=== PATIENT | male | born 1950 | race Caucasian/White ===

== ENCOUNTER 2019-01-21 06:09 | Inpatient (IN) | payer MEDICARE, OTHER, SELFPAY ==
[2019-01-19 08:30] VITALS: BMI 28.1
[2019-01-21] VITALS (17 sets, daily range): BP systolic 99–175; BP diastolic 39–91; PULSE 66–91; RESP 11–20; TEMP 36.1–37.3; O2SAT 91–98; BMI 28.1
--- NOTE | 2019-01-21 | DI.RAD.S_ITS ---
PROCEDURE: XR LUMBAR SPINE 2-3V INDICATIONS: L5-S1 TLIF TECHNIQUE: 2 views of the lumbar spine were acquired. COMPARISON: [facility], , XR LUMBAR SPINE WITH OBLIQUES, 05/13/2017, 13:09. [facility], CR, XR LUMBAR SPINE WITH OLBIQUES PLUS FLEXION EXTENSION, 12/02/2018, 14:35. [facility], MR, MR LUMBAR SPINE WITHOUT CONTRAST, 12/11/2018, 13:19. FINDINGS: 2 intraoperative fluoroscopy images demonstrate open discectomy and posterior fusion at L5-S1. IMPRESSION: Discectomy and posterior fusion at L5-S1. Dictated by: Kiesha Chavez M.D. on 01/21/2019 at 11:45 Approved by: Kiesha Chavez M.D. on 01/21/2019 at 11:56
[2019-01-21] MEDS: LACTATED RINGERS 1,000 ML 42 ML IV ×2 (07:05→09:54)
--- NOTE | 2019-01-21 07:07 | PM.PREOP ---
Pre-operative Note Interval Note History & Physical reviewed/Exam performed by Physician: Yes Changes to H&P: No
[2019-01-21] MEDS: CLINDAMYCIN 900 MG/50 ML PIGGYBACK 50 MG IV ×2 (07:42→16:29)
--- NOTE | 2019-01-21 08:28 | SUR.OPER ---
Prone on spine table, head in foam head support, padded chest and pelvic supports, gel pad at knees, lower legs supported by pillows; nipples, genitalia and toes free of pressure, arms secured on foam padded arm boards at <90 degrees abduction. Tape over blanket at thigh secured to table.
[2019-01-21] MEDS: SODIUM CHLORIDE 0.9% 1,000 ML, GENTAMICIN 80 MG IRR ×2 (08:37→10:26)
[2019-01-21] MEDS: THROMBIN (RECOMBINANT) 5,000 UNIT VIAL 5000 UNIT TOP (08:38)
[2019-01-21] MEDS: VANCOMYCIN 1,000 MG VIAL 1000 MG TOP (08:38)
[2019-01-21] MEDS: BUPIVACAINE 0.5% (PF) 4 ML, MORPHINE-PF 4 MG, BUTORPHANOL 1 MG, fentaNYL 100 MCG INJ (10:23)
--- NOTE | 2019-01-21 11:08 | P.OP_ITS ---
Operative Date/Time/Diagnoses Date of procedure: 01/21/19 Time of procedure: 11:02 Pre-op diagnosis: lumbar stenosis with radiculopathy Post-op diagnosis: same Procedure & Clinicians Procedure: L5S1 TLIF (post/post interbody fusion) with cage L5,S1 screws icbg L45 laminectomy L5S1 laminectomy use of microscope placement of epidural catheter Same procedure as scheduled: Yes Indications: [age] year old male with intractable pain from lumbar stenosis. They had failed conservative management and requested operative intervention. Risks and benefits of surgery were discussed and appropriate consents were obtained. Surgeon: Adam Witt License Examiner: Emily Miller Operative Notes Findings: None Closure Type: primary Specimen(s): none sent Prosthetic devices, grafts, tissues, transplants, or devices: NuVasive MAS Reline screws Globus Rise cage Applied: catheter Estimated Blood Loss (mL): 20 Procedure in detail: The patient was brought to the operating room and intubated on the table. A time-out was performed. They were then rolled over to the well- padded Vinicius table in the prone position. Preoperative antibiotics were given. The back was prepped and draped in the standard sterile fashion. Using fluoroscopy, a 4 cm longitudinal incision was made to the well-marked left of the midline. We used Bovie to come down to and split the lumbodorsal fascia. Using fluoroscopy and monitoring, we then percutaneously placed Jamshidi needles down the pedicles of L5 and S1 on the left side. These were changed out to guidewires and then we tapped and then placed the NuVasive MAS Reline screw shanks. We then opened up the retractors and used Bovie to clear up the posterolateral gutter as well as medially along the lamina to the spinous processes. A bur was used to decorticate the transverse processes. We brought in the microscope. Using a combination of bur and Kerrison rongeurs, a L5-S1 laminectomy was performed from the left side. We cleared over past the midline and carefully depressed the dura until we were able to decompress the opposite side. We cleared out the neural foramen. This took a complete facetectomy to decompress the foramen. We actually went out much further lateral than the pedicles to complete this decompression until the L5 root was finding clear. This was separate and distinct from the TLIF approach as we were extensively decompressing the neural foramen and not just doing a partial facetectomy for an approach. We then began work on the interbody portion. We retracted the exiting root as well as clearing medially below the dura and exposed the disc space. The disc was prepped with bipolar and then an annulotomy was performed. We performed a diskectomy using a combination of paddles, renetta, pituitaries, and curettes. We distracted the disc using a paddle and locked the retractor in an open position. We then filled the disc space with Osteocel bone graft. We then placed the globus Rise cage under fluoroscopy and then filled this in with more bone graft. The distraction on the retractor was released to compress down. This completed the posterior interbody fusion portion of the TLIF at L5-S1. The wound was irrigated. We then opened up the retractor above this at L4-5 and cleared off the lamina until we were up to the level the spinous process. We again used a bur and Kerrison rongeur to perform a laminectomy at the L4-5 level. We carefully depress the dura and went to the opposite side which required extensive decompression. We cleared out the foramen. Care was taken to preserve the pars and not destabilize the facets. In the end we could sweep a ball probe cephalad and caudally out to the foramen across and everything was opened. This completed the L4-5 laminectomy. The wound was irrigated. We then placed the screw heads, skip, and locked down the set screws at L5-S1. A small stab incision was made over the PSIS. We used a Jamshidi needle to aspirate several mL of bone marrow from the pelvis. This was mixed with the remaining Osteocel and combined with all of the locally harvested bone graft and placed in the posterolateral gutter for the posterior fusion of the TLIF at L5- S1. An epidural catheter was then placed in the spinal canal by carefully depressing the dura and advancing it 6 cm cephalad under the remaining lamina without resistance. The muscle fascia was closed. The catheter was then injected with a solution containing 4 mL of 0.5% Marcaine, 1 mg Stadol, 4 mg Duramorph, and 100 mcg of fentanyl. This was injected without resistance and the catheter was pulled. We then went to the opposite side. Again using fluoroscopy, a 3 cm incision was made and Bovie was used to come down to split the fascia. Using neural monitoring and fluoroscopy, Jamshidi needles were advanced down the pedicles of L5 and S1 on the right side. These were switched over guidewires, tapped, and screws placed. We then placed a skip and locked the set screws on this side. The wound was irrigated. The fascia was closed. Vancomycin powder was placed in the wounds. The superficial and skin were closed. A sterile dressing was placed. The patient was then rolled over extubated and brought to recovery room without complications. Complications: none Condition: stable Disposition: PACU Plan for aftercare: Inpatient. Up with therapy.
[2019-01-21] MEDS: fentaNYL 100 MCG/2 ML INJ 50 MCG IV (11:32)
[2019-01-21] MEDS: hydrOXYzine 50 MG/ML INJ 25 MG IM (11:51)
[2019-01-21] MEDS: LACTATED RINGERS 1,000 ML 125 ML IV ×2 (12:45→21:06)
--- NOTE | 2019-01-21 14:40 | PC.NURSE ---
1225 Pt arrived to 213 via bed from PACU. Pt awake, A&Ox3
--- NOTE | 2019-01-21 14:42 | PC.NURSE ---
1300 Pt has IVF infusing, able to move all extremities, denies pain. has ice to back inc. Incision site/drsg dry & intact. Footie scds on. Family at bedside, Pt taking in sips of water. VS wnl. No c/o at this time.
--- NOTE | 2019-01-21 15:47 | PT.IIE ---
Current Diagnoses Spinal stenosis, lumbar region with neurogenic claudication (01/21/19) Surgery Performed Operation Date: 01/21/19 07:45 Actual Procedures p L4-5,L5-S1 Laminectomy; L5-S1 Instru. fusion w/bone graft - Adam Witt MD Surgical History (Last Updated 01/19/19 @ 08:35 by Catherine Alcaraz, RN) History of bilateral carpal tunnel release (Acute) Hx of appendectomy (Acute) Hx of hand surgery (Acute ~1997) Medical History (Last Updated 01/19/19 @ 09:13 by Catherine Alcaraz RN) Arthritis (Acute) Bilateral cataracts (Acute) Elevated glucose (Acute) Former smoker (Acute) HTN (hypertension) (Acute) History of retinal detachment (Acute) Left sided sciatica (Acute) Low back pain (Acute) Lumbosacral spondylosis with radiculopathy (Acute) Mixed hyperlipidemia (Acute) Numbness and tingling (Acute) Osteoarthritis (Acute) Osteoporosis (Acute) Pneumonia (Acute) RLS (restless legs syndrome) (Acute) Skin cancer of arm (Acute) Physical Therapy Inpatient Evaluation/Re-Eval M1 PT/OT-IP Prior Functional Status Start: 01/21/19 17:07 Freq: NEEDED Status: Active Protocol: Document 01/21/19 15:47 AB (Rec: 01/21/19 17:24 AB [id number]) Medical Review Prior Functional Status Medical History Reviewed Yes Communication able to make needs known Mobility and Gait pt stated that he is independent with all mobilities and ambulation without AD Social History Household Members spouse Living Arrangements House Number of Floors (Floors) 3 or More Floors Number of Stairs To Enter/Railing? pt lives on a split level house but pt stays on main level of the house has 2 steps to enter without rail Home Environment High Toilet Tub/Shower Home Equipment Straight Cane Employment Status Retired M2 PT-IP Current Condition Start: 01/21/19 17:07 Freq: NEEDED Status: Active Protocol: Document 01/21/19 15:47 AB (Rec: 01/21/19 17:24 AB [id number]) Physical Therapy Current Condition Current Condition Evaluation Date 01/21/19 Treatment Diagnosis s/p L5S1 TLIF; L4-S1 lami; difficulty in walking Onset Date 01/21/19 Precautions Lumbar Precautions Log Roll No Twisting Limit Bending Lifting Restriction of 10 lbs Gait Belt above Incisional Area M3 PT-IP Subjective Start: 01/21/19 17:07 Freq: NEEDED Status: Active Protocol: Document 01/21/19 15:47 AB (Rec: 01/21/19 17:24 AB [id number]) Subjective Physical Therapy Visit Type Type Initial Evaluation Visit Start Time 15:47 Visit Stop Time 16:42 Total Visit Minutes 55 Number of MIXING MACHINE TENDER CORK ROD Visits 0 Physical Therapy Visit Comments Patient Comments pt agreeable to do PT Therapy Pain Assessment Pain When Pain Assessed During Mobility Pain Present Pain Present Pain Reported Location Lower Back Intensity 4 Pain Management Techniques Re-positioning Timing of Activity with Medications M4 PT-IP Mobility and Gait Start: 01/21/19 17:07 Freq: NEEDED Status: Active Protocol: Document 01/21/19 15:47 AB (Rec: 01/21/19 17:24 AB [id number]) PT-Bed Mobility Assessment Rolling Type of Rolling Log Rolling Level of Assist Contact Guard Assistance Supine to Sit Supine to Sit Contact Guard Assistance Sit to Supine Sit to Supine Minimal Assistance 1 Person Assistance Scooting Scooting to Edge of Bed Contact Guard Assistance PT-Transfer Assessment Sit to and From Stand Sit to and from Stand Moderate Assistance 1 Person Assistance Use of Upper Extremities Equipment Transfer Assistive Device Gait Belt Front Wheeled Walker Comments Mobility Comments BP: 136/75 supine. pt completed supine to sit log roll CGA. pt sat on EOB SBA. c/o dizziness and nausea. BP : 180/95 pt with (+) emesis. Nurse aware and gave pt his nausea med. pt wanted to see how he feels after nausea med was taken and wants to try to move if he feels ok afterwards . Pt tolerated sitting on EOB ~ 7 min. BP checked again. 170/85 pt stated that he is feeling a little better but continues to have slight dizziness. pt wanted to try standing and completed sit to stand mod A and cues. pt was able to take 3 steps forward/ backwards using FWW min A and cues, took side steps towards HOB ~ 3 steps min A using FWW . pt completed sit to supine log roll min A to elevate LE up into the bed. positioned pt on the bed. call light and table placed within reach. BP in supine at end of tx session: 148/85 Gait Assessment Gait Gait Assistance Required: Minimum Assistance Distance (Feet) 3 Able to Maintain Weight Bearing Status Yes During Gait Assistive Devices Assistive Device Gait Belt Front Wheeled Walker Gait Deviations General Gait Pattern Decreased Stride Length Decreased Feet Clearance Factors Limiting Gait Function Factors Limiting Gait Function Decreased Activity Tolerance Decreased Sensation Decreased Strength Limited Range of Motion Pain Poor Balance PT-Balance Assessment Sitting Balance and Reactions Static Sitting Balance Ability Good Dynamic Sitting Balance Ability Good Standing Balance and Reactions Static Standing Balance Ability Fair Dynamic Standing Balance Ability Fair Device Used FWW M5 PT-IP Objective Assessments Start: 01/21/19 17:07 Freq: NEEDED Status: Active Protocol: Document 01/21/19 15:47 AB (Rec: 01/21/19 17:24 AB [id number]) Orientation Orientation/Cognition Level of Alertness Alert Orientation Name Place Situation Language Function Ability No Deficits Noted Safety Awareness Understands Safety Issues Memory Description No Deficits Noted Gross Range of Motion Lower Extremity ROM Assessment Within Functional Limits Strength Lower Extremity Strength Assessment Within Functional Limits Coordination Assessment Gross Coordination Gross Coordination WNL Sensation Assessment Sensation Gross Sensation Left LE Impaired Light Touch Impaired Sensation Description Numbness Comments Sensation Comments stated that sensation on LLE is less compared to RLE Muscle Tone Muscle Tone WNL Yes M6 PT-IP Treatment Start: 01/21/19 17:07 Freq: NEEDED Status: Active Protocol: Document 01/21/19 15:47 AB (Rec: 01/21/19 17:24 AB [id number]) Physical Therapy Treatment Exercises Exercises Ankle Pumps Heel Slides Education Education Provided Precautions Weight Bearing Status Post-Op Packet Safety M7 PT-IP Assessment and Plan Start: 01/21/19 17:07 Freq: NEEDED Status: Active Protocol: Document 01/21/19 15:47 AB (Rec: 01/21/19 17:24 AB [id number]) PT Summary Assessment and Plan Potential Rehabilitation Potential Good Status of Condition at Evaluation Evolving Summary Impairments Pain ROM Strength Balance Coordination Sensation Tone Cognition Bed Mobility Transfers Gait Activity Tolerance Assessment Summary pt unable to tolerate much activity today with c/o dizziness and nausea. Further assessment is needs for safe d/c plan but pt stated that he plans to go home with his spouse to assist him. caregiver training will be conducted as well as stair climbing training when appropriate Goals Bed Mobility Goal Standby Assistance Transfer Goal Standby Assistance Front Wheeled Walker Gait Goal Standby Assistance Front Wheel Walker Gait Distance 200 Other Goals up/down 2 steps without rails using FWW/ SPC SBA Days to Meet Goals 5 Frequency of Treatment Frequency Of Treatment Twice a Day Treatment Plan Physical Therapy Treatment Plan Bed Mobility Training Transfer Training Gait Training Therapeutic Exercise Balance Retraining Post Op Education Discharge Planning Hot or Cold Pack Neuromuscular Re-ed Coordination Retraining Manual Therapy Other Recommendations and Next Treatment ambulation, caregiver training Focus , stair climbing Recommendations To Nursing Amount of Assist Needed 1 Person Assist Discharge Recommendations PT Discharge Recommendations Home with Assistance
[2019-01-21] MEDS: ONDANSETRON 4 MG/2 ML INJ IV (16:26)
[2019-01-21] MEDS: DOCUSATE 100 MG CAPSULE PO (21:06)
[2019-01-21] MEDS: SENNOSIDES 8.6 MG TABLET 17.2 MG PO (21:06)
[2019-01-21] MEDS: GABAPENTIN 300 MG CAPSULE PO (21:06)
[2019-01-21] MEDS: CELECOXIB 200 MG CAPSULE PO (21:07)
[2019-01-21] MEDS: HYDROCODONE/ACET 5/325 TABLET 1 TAB PO (21:12)
[2019-01-22] MEDS: CLINDAMYCIN 900 MG/50 ML PIGGYBACK 50 MG IV (00:16)
--- NOTE | 2019-01-22 00:33 | PC.NURSE ---
Addendum entered by Manuela No R.N. 01/22/19 05:53: Slept well most of night and states he feels pretty good this morning. Assisted to lie on back and then placed in high Hall's position. Denies pain at present time. Hoping for possible DC today. Addendum entered by Manuela No R.N. 01/22/19 04:06: Patient awake and states he is having 5/10 bilateral hip pain; medicated with Vicodin and assisted to reposition. Original Note: Patient is alert and oriented. Breath sounds CTA with RA sat of 97%. HRR. Denies nausea. BT hypoactive; denies flatus. Indwelling catheter is patent with clear yellow urine. Dressing to back is intact; small steri strip at bottom left corner of dressing with serosanguinous drainage noted but no leakage. Denies pain other than some minimal discomfort; declined pain med but agreeable to ice pack. Assisted to reposition onto right side; patient requests not to awaken for repositioning and was able to move self mostly by himself in bed so will honor request. CMS is intact although feet cool to touch; warm blanket provided. Wearing bilateral foot SCD's. Fall risk score is moderate; bed alarm is activated. Discussed importance of CDB and use of I.S. when awake; verbalizes understanding.
[2019-01-22 00:47] VITALS: BP 131/50; PULSE 86; RESP 18; TEMP 36.7; O2SAT 96
[2019-01-22] MEDS: HYDROCODONE/ACET 5/325 TABLET 1 TAB PO ×5 (04:03→21:03)
[2019-01-22 04:07] VITALS: BP 127/64; PULSE 70; RESP 18; TEMP 36.6; O2SAT 98
[2019-01-22 05:25] LABS: Hematocrit 37.2 % (41-53); Hemoglobin 12.8 g/dL (13.5-17.5)
--- NOTE | 2019-01-22 07:33 | PM.PNPO.1 ---
Subjective Date Patient Seen: 01/22/19 Time Patient Seen: 07:33 Interval history: He is doing very well. Minimal pain. Exam Vital Signs (past 8 hours): - 01/22/19 00:47 01/22/19 04:07 Temperature 98.0 F 97.8 F Pulse Rate 86 70 Respiratory Rate 18 18 Blood Pressure 131/50 L 127/64 Pulse Oximetry 96 98 Fraction of Inspired Oxygen 21 Oxygen Delivery Method Room Air Oxygen Flow Rate 0 Const Orientation: alert and oriented x3 Back/Spine/Pelvis Other: CDI. 5/5 motor both lower extremities Objective Labs Result Diagrams: 01/22/19 05:12 Labs: Laboratory Results - last 24 hr 01/22/19 05:12 Hgb 12.8 L Hct 37.2 L Assessment & Plan Post-op Postoperative Procedures Operation Date: 01/21/19 07:45 Actual Procedures Side Surgeon p L4-5,L5-S1 Laminectomy; L5-S1 Instru. fusion w/bone graft Adam Witt MD he is doing very well. Mobilize with therapy today. Probable discharge home tomorrow. Quality VTE Deep Vein Thrombosis/Pulmonary Embolism Present on Admission: No
[2019-01-22 07:40] VITALS: BP 138/75; PULSE 79; RESP 15; TEMP 36.6; O2SAT 97
--- NOTE | 2019-01-22 09:02 | CM.DPC ---
Discharge Planning/Care Management DCP: assessment: case received, EMR reviewed. Met with pt and introduced self and role. Pt is found sitting up in chair, eating breakfast. States I feel so much better today. My mind is clearing. Pt is a 68 year old male who admitted yesterday for a planned spinal surgery. Surgeon: Dr. Witt Payer: Medicare and Premeraa D Admission status: INPT: confirmed by UR MARYA NNE Levi. Pt confirms that his plan when ready to leave hospital is to go home with his Angela. Angela will be in later today with his borrowed FWW and will likely be part of caregiver training with the PT/OT team. PT Eileen was able to do initial eval yesterday after pt arrived from PACU but this was limited by nausea and dizziness. P: discuss case in Team Rounds today. DCP team will be following to assist prn with any needs that may arise but at this point anticipate he will be able to return home when stable for that environment with Mary Jo's support and clinic followup. Advanced directive, confirm from FAMILY Start: 01/21/19 14:23 Freq: Q24H Status: Active Protocol: Document 01/21/19 17:00 EM (Rec: 01/21/19 17:18 EM [id number]) Advance Directive, confirm on record Time 17:00 Person contacted Natasha Copy received No CM Discharge Assessment Start: 01/22/19 08:59 Freq: Status: Active Protocol: Document 01/22/19 08:59 ITV (Rec: 01/22/19 09:02 ITV [id number]) Discharge Planning Assessment Advance Directives? No: Declines further information History Provided By Patient Medical Record Prior Living Arrangements House Comment 3+ floors. stays on main level 2 steps entry/no rail Household Members spouse Independent with ADL's Yes Is patient alert and oriented? Yes DME Already Rented / Owned FWW / Walker Cane Comment has been using a cane bringing in a borrowed FWW today/PT will check it for size Discharge Plan Home Whiteboard Updated in Patient Room with Yes name and ext. # of Science Consultant Review Status In Process Pre-Anesthesia Assessment Start: 01/19/19 08:30 Freq: Status: Complete Protocol: Document 01/19/19 08:30 CAB (Rec: 01/19/19 09:31 CAB [id number]) Pre-Anesthesia Assessment Patient Also Known As Schwartz (AKA) Patient Information Reviewed Via Phone Assessment Assessment Completed With Patient Diagnostic Results BMP/CMP CBC EKG Other Comment A1c. Outside labs/EKG scanned to record Primary Care Provider Conor Medical Clearance Received Yes Seen Specialist in Last 12 Months Yes Specialist Seen Orthopedist Comment PCP pre-op/clearance scanned to record Primary Language Angolan Sap Security Consultant Required No Height 172.72 cm Weight 83.915 kg Body Mass Index (BMI) 28.1 Hearing Ability Normal Visual Assist Glasses Dentition Type Teeth, Natural Present Barriers to Learning None Other Aids No Hx Anesthesia Reactions No Hx Family Anesthesia Reaction No Hx Malignant Hyperthermia No Hx Blood Transfusions No Anesthesia Review Requested No Realtime Reporter No alcohol intake former Smoking Status Former smoker how long ago did patient quit smoking Quit 1997 Substance Use Type marijuana Comment Advised not to smoke marijuana 24 hours prior to surgery Pain Present Pain Reported Musculoskeletal Symptoms Abnormal Gait Back Pain Difficulty Walking Joint Pain Muscle Cramps Numbness Radiating Pain into Limb Tingling History of Falling (Recent or History of No ) Patient is completely paralyzed or No completely immobile Mental Status Oriented to own ability Is patient on oxygen? No Does patient have ALMONTE/SOB No Hx Sleep Apnea No Currently Taking a Beta Vielka No Can You Climb a Flight of Stairs Without Yes SOB Hx Chest Pain No Hx SOB No Hx Syncope or Dizziness No Anti-Coagulant Therapy No Has a Box Brander No Cardiac Testing No Hx Pacemaker/ICD No Pacemaker Rep Required? No Cardiac Clearance Received Not Applicable Diet Type At Home Regular dysphagia No Urinary Catheter Present No Hx Urinary Self Catheterization No Diabetes No HgbA1C 5.7 Date 01/11/19 Hx Drug Resistant Organism No Presence of External or Internal Medical No Devices Have you traveled outside the [facility] in the last 30 days? Marital Status Lives With spouse Prior Living Arrangements House Number of Floors (Floors) Two Floors Support System Friend(s) Spouse Does the Patient Have Assistance After Yes Surgery Patient Discharge Plan Description Return Home Comment Pt advised 1-2 day length of stay per surgeon's office Feels Safe in Current Environment Yes Been Physically Hurt or Threatened By a No Person in Current Environment Do you have thoughts of harming yourself None or others? Are you currently considering suicide? No Do you have a plan to hurt yourself or No Plan others? Do You Have Any Spiritual Beliefs That No May Affect Your HC Choices? Do You Have Any Cultural Practices That No May Affect Your HC Choices? Spiritual Referral None Comment Muslim Who Can We Speak to About Patient's Care Family, friends Identifying Code for Release of Patient Declines to issue Information Health Care Proxy/Next of Kin Angela () Health Care Proxy Emergency Contact Name Angela () Emergency Contact Advance Directives? No: Declines further information PAC Instructions Durable medical equipment Medications to take/avoid Nasal antibiotic No ETOH/petroleum product on skin DOS NPO Post-op transportation Pre-surgical wash Sturdy shoes/comfortable clothes Do not bring valuables and remove jewelry
[2019-01-22] MEDS: DOCUSATE 100 MG CAPSULE PO ×2 (09:04→21:00)
[2019-01-22] MEDS: ASPIRIN 325 MG TABLET 162.5 MG PO (09:04)
[2019-01-22] MEDS: CELECOXIB 200 MG CAPSULE PO ×2 (09:05→21:00)
[2019-01-22] MEDS: SODIUM CHLORIDE 0.9% FLUSH 10 ML IV ×2 (09:05→21:01)
[2019-01-22] MEDS: LISINOPRIL 20 MG TABLET PO (09:05)
--- NOTE | 2019-01-22 10:01 | PT.IPTN ---
Current Diagnoses Spinal stenosis, lumbar region with neurogenic claudication (01/21/19) Surgery Performed Operation Date: 01/21/19 07:45 Actual Procedures p L4-5,L5-S1 Laminectomy; L5-S1 Instru. fusion w/bone graft - Adam Witt MD Physical Therapy Treatment Note M2 PT-IP Current Condition Start: 01/21/19 17:07 Freq: NEEDED Status: Active Protocol: Document 01/21/19 15:47 AB (Rec: 01/21/19 17:24 AB [id number]) Physical Therapy Current Condition Current Condition Evaluation Date 01/21/19 Treatment Diagnosis s/p L5S1 TLIF; L4-S1 lami; difficulty in walking Onset Date 01/21/19 Precautions Lumbar Precautions Log Roll No Twisting Limit Bending Lifting Restriction of 10 lbs Gait Belt above Incisional Area M3 PT-IP Subjective Start: 01/21/19 17:07 Freq: NEEDED Status: Active Protocol: Document 01/22/19 09:10 (Rec: 01/22/19 10:01 [id number]) Subjective Physical Therapy Visit Type Type Treatment Note Visit Start Time 09:10 Visit Stop Time 09:30 Total Visit Minutes 20 Number of DIE MAINTENANCE TECHNICIAN Visits 0 Physical Therapy Visit Comments Patient Comments pt agreeable to do PT Therapy Pain Assessment Pain When Pain Assessed During Mobility Pain Present Pain Present Pain Reported Location Bilateral Hip Intensity 2 Scale Used Numeric (1 - 10) M4 PT-IP Mobility and Gait Start: 01/21/19 17:07 Freq: NEEDED Status: Active Protocol: Document 01/22/19 09:10 (Rec: 01/22/19 10:01 [id number]) PT-Bed Mobility Assessment Scooting Scooting to Edge of Bed Independent PT-Transfer Assessment Sit to and From Stand Sit to and from Stand Standby Assistance Use of Upper Extremities Equipment Transfer Assistive Device Gait Belt Front Wheeled Walker Transfers Transfer Destination Chair Transfer Ability Level of Assist Standby Assistance Use of Upper Extremities Comments Mobility Comments BP: 150/74 pre mobility BP: 164/78 post mobility Pt up in chair upon assessment . He was able to transfer with SBA FWW. Gait Assessment Gait Gait Assistance Required: Standby Assistance Distance (Feet) 700 Able to Maintain Weight Bearing Status Yes During Gait Assistive Devices Assistive Device Gait Belt Front Wheeled Walker Gait Deviations General Gait Pattern Decreased Stride Length Decreased Feet Clearance Factors Limiting Gait Function Factors Limiting Gait Function Decreased Activity Tolerance Decreased Sensation Decreased Strength Limited Range of Motion Pain Poor Balance Comments Gait Comments Pt used step over gait with FWW and SBA. Pt denies numbness/ tingling/ radiating pain during mobility. Stair Climbing Assessment Evaluation Level of Assist On Stairs Standby Assistance Devices Stair Climbing Assistive Devices Left Railing Right Railing Technique/Endurance Stair Climbing Direction Ascend and Descend Stair Climbing Technique Step Over Step Number of Steps Climbed 3 Stair Climbing Set # Repetitions (reps) 2 M5 PT-IP Objective Assessments Start: 01/21/19 17:07 Freq: NEEDED Status: Active Protocol: Document 01/21/19 15:47 AB (Rec: 01/21/19 17:24 AB [id number]) Orientation Orientation/Cognition Level of Alertness Alert Orientation Name Place Situation Language Function Ability No Deficits Noted Safety Awareness Understands Safety Issues Memory Description No Deficits Noted Gross Range of Motion Lower Extremity ROM Assessment Within Functional Limits Strength Lower Extremity Strength Assessment Within Functional Limits Coordination Assessment Gross Coordination Gross Coordination WNL Sensation Assessment Sensation Gross Sensation Left LE Impaired Light Touch Impaired Sensation Description Numbness Comments Sensation Comments stated that sensation on LLE is less compared to RLE Muscle Tone Muscle Tone WNL Yes M6 PT-IP Treatment Start: 01/21/19 17:07 Freq: NEEDED Status: Active Protocol: Document 01/22/19 09:10 (Rec: 01/22/19 10:01 [id number]) Physical Therapy Treatment Exercises Exercises Ankle Pumps Heel Slides Education Education Provided Precautions Weight Bearing Status Post-Op Packet Safety M7 PT-IP Assessment and Plan Start: 01/21/19 17:07 Freq: NEEDED Status: Active Protocol: Document 01/22/19 09:10 (Rec: 01/22/19 10:01 [id number]) PT Summary Assessment and Plan Summary Impairments Pain ROM Strength Balance Coordination Sensation Tone Cognition Bed Mobility Transfers Gait Activity Tolerance Progress Towards Goals Progressing Toward Goals Assessment Summary Pt progress very well without discomfort. He was able to amb and transfer as arron with SBA and FWW. He appears very safe and has a good understanding of precautions. He is expected to be d/c home with spouse's assistance. Informed MARY ANNE Townsend regarding pt's current mobility status. Goals Bed Mobility Goal Standby Assistance Transfer Goal Standby Assistance Front Wheeled Walker Gait Goal Standby Assistance Front Wheel Walker Gait Distance 200 Other Goals up/down 2 steps without rails using FWW/ SPC SBA Days to Meet Goals 5 Frequency of Treatment Frequency Of Treatment Twice a Day Treatment Plan Physical Therapy Treatment Plan Bed Mobility Training Transfer Training Gait Training Therapeutic Exercise Balance Retraining Post Op Education Discharge Planning Hot or Cold Pack Neuromuscular Re-ed Coordination Retraining Manual Therapy Other Recommendations and Next Treatment ambulation, caregiver training Focus , stair climbing Recommendations To Nursing Amount of Assist Needed 1 Person Assist Discharge Recommendations PT Discharge Recommendations Home with Assistance
--- NOTE | 2019-01-22 10:28 | PC.NURSE ---
AM NOTE - OPERATIONS PLANT ATTENDANT assisted oob w/fww and ambul to chair for breakfast, denies nausea, passing some flatus this am, shahnaz w/clear, yellow urine, hr 84, 02 sat 97%, using IS to about 1500, discussed pain mgt this am and given norco 5/325 x1 tab this am after breakfast for phys therapy. Later ambul w/PT, giat steady, discussed dc home later, pt has some concerns and plan to reeval after 2nd PT this afternoon, at this time, prefers to wait until tomorrow to dc home.
--- NOTE | 2019-01-22 10:47 | OT.IP.EVAL ---
Current Diagnoses Spinal stenosis, lumbar region with neurogenic claudication (01/21/19) Surgery Performed Operation Date: 01/21/19 07:45 Actual Procedures p L4-5,L5-S1 Laminectomy; L5-S1 Instru. fusion w/bone graft - Adam Witt MD Past Medical History (Last Updated 01/19/19 @ 09:13 by Catherine Alcaraz RN) Arthritis (Acute) Bilateral cataracts (Acute) Elevated glucose (Acute) Former smoker (Acute) HTN (hypertension) (Acute) History of retinal detachment (Acute) Left sided sciatica (Acute) Low back pain (Acute) Lumbosacral spondylosis with radiculopathy (Acute) Mixed hyperlipidemia (Acute) Numbness and tingling (Acute) Osteoarthritis (Acute) Osteoporosis (Acute) Pneumonia (Acute) RLS (restless legs syndrome) (Acute) Skin cancer of arm (Acute) Surgical History (Last Updated 01/19/19 @ 08:35 by Catherine Alcaraz RN) History of bilateral carpal tunnel release (Acute) Hx of appendectomy (Acute) Hx of hand surgery (Acute ~1997) Occupational Therapy Inpatient Evaluation/Re-Eval M1 PT/OT-IP Prior Functional Status Start: 01/22/19 10:30 Freq: NEEDED Status: Active Protocol: Document 01/22/19 10:31 [facility] (Rec: 01/22/19 10:45 [facility] [id number]) Medical Review Prior Functional Status Medical History Reviewed Yes Communication able to make needs known Mobility and Gait pt stated that he is independent with all mobilities and ambulation without AD Activities of Daily Living and IADL's Pt independent for all needs for ADl's and IADL's. Social History Household Members spouse Living Arrangements House Number of Floors (Floors) 3 or More Floors Number of Stairs To Enter/Railing? pt lives on a split level house but pt stays on main level of the house has 2 steps to enter without rail Home Environment High Toilet Tub/Shower Home Equipment Straight Cane Employment Status Retired M2 OT-IP Current Condition Start: 01/22/19 10:30 Freq: Status: Active Protocol: Document 01/22/19 10:31 [facility] (Rec: 01/22/19 10:45 [facility] [id number]) Occupational Therapy Current Condition Current Condition Evaluation Date 01/22/19 Treatment Diagnosis Lumbar stenosis Diagnosis Onset Date 01/21/19 Post Operative Precautions Lumbar Precautions Log Roll No Twisting Limit Bending Lifting Restriction of 10 lbs Gait Belt above Incisional Area Weight Bearing Status Weight Bearing Status Weight Bear as Tolerated M3 OT- IP Subjective and Pain Start: 01/22/19 10:30 Freq: Status: Active Protocol: Document 01/22/19 10:31 [facility] (Rec: 01/22/19 10:45 [facility] [email or web address]) OT- Subjective Occupational Therapy Visit Type Type Initial Evaluation Visit Start Time 09:35 Visit Stop Time 10:25 Total Visit Minutes 50 Occupational Therapy Visit Comments Patient Comments Pt cooperative, pleasant, and motiviated to go home. OT Pain Assessment Pain When Pain Assessed At Rest Pain Present Pain Present Pain Reported Location Bilateral Hip Intensity 2 M4 OT- IP ADL's Start: 01/22/19 10:30 Freq: Status: Active Protocol: Document 01/22/19 10:31 [facility] (Rec: 01/22/19 10:45 [facility] [id number]) OT ADL-Grooming General Evaluation Grooming Ability Independent Comments OT Grooming Comments SBA while standing with FWW at the sink and able to do all grooming needs. VC to bend at hip or spit into cup. OT ADL-Oral Care General Eval Oral Care Ability Independent OT ADL-Dressing General Eval Lower Body Dressing Ability Maximum Assistance Comments OT Dressing Comments Educated on use of LB AED for socks and pants management needs. Pt to order items on [employer], otherwise pt's to be home to assist for all needs. OT ADL-Toileting General Evaluation Toileting Ability Standby Assistance Comments OT Toileting Comments Pt able to simulate wiping and bets to stand to wipe as unable to follow back precautions to wipe while sitting. OT ADL-Bathing Comments OT Bathing Comments Not ready at this time. Simulated stepping over tub for tub/shower by holding to the wall and will be home to help. Pt would benefit from HHSp, long handled sponge , and possibly shower chair. M5 OT- IP IADL's Start: 01/22/19 10:30 Freq: Status: Active Protocol: Document 01/22/19 10:31 [facility] (Rec: 01/22/19 10:45 [facility] [email or web address]) OT-Instrumental Activities of Daily Living Home Safety Awareness Awareness of Need for Assistance at Home Good Awareness Ability to Problem Solve Emergency Able to Problem Solve Situations Medication Management Medication Management Comments Pt states to have assist initially. Money Management Money Management Comments Pt states to assist intially. Meal Preparation Meal Preparation Caregiver Provides Assist Vp Platforms Vp Platforms Caregiver Provides Assist M6 OT- IP Functional Cognition Start: 01/22/19 10:30 Freq: Status: Active Protocol: Document 01/22/19 10:31 [facility] (Rec: 01/22/19 10:45 [facility] [email or web address]) Cognitive Factors Limiting Selfcare Function Cognitive Ability Level of Alertness Alert Patient Orientation Name Age Birthday Month Date Year Day of Week Place Situation Attention Span Ability Capable of Focused Attention Capable of Sustained Attention Ability to Follow Commands Able to Follow Multi-Step Commands Memory Description No Deficits Noted Safety Awareness Decreased Ability to Apply Precautions Problem Solving Ability Needs Assist to Identify Solutions Cognitive Comments Cognitive Assessment Comments Pt mainly forgetting to incorporate no twisting for back precautions and needing reminders to slow down and think things through while moving. OT- Vision and Hearing OT- Hearing Assessment OT- Hearing Assessment WFL OT- Vision Assessment Visual Acuity Glasses For Reading M7 OT- IP Mobility and Balance Start: 01/22/19 10:30 Freq: Status: Active Protocol: Document 01/22/19 10:31 [facility] (Rec: 01/22/19 10:45 [facility] [email or web address]) OT- Bed Mobility Assessment Rolling Type of Rolling Roll to Left Level of Assistance Standby Assistance Supine to Sit Supine to Sit Assist Standby Assistance Sit to Supine Sit to Supine Assist Standby Assistance OT-Transfer Assessment Sit to and From Stand Sit to and from Stand Standby Assistance Transfers Transfer Ability Standby Assistance Technique Transfer Destination Bed Chair Shower Stall Toilet Transfer Technique Stand Step Pivot Devices Transfer Assistive Devices Gait Belt Front Wheeled Walker Comments Mobility Comments Stimulated high bed as pt's bed very high at home and able to safely get into and out of the bed with good safety. SBA for all transfer, Pt able to be SBA without FWW however at thie time best to use FWW as help him to slow down and would be beneficial for uneven terrain. When over car transfer strategies with pt. Pt will use cell phone to call at night or use of urinal as they sleep in separate rooms at night. OT- Balance Assessment Sitting Balance and Reactions Static Sitting Balance Ability Normal Dynamic Sitting Balance Ability Normal Standing Balance and Reactions Static Standing Balance Ability Good M8 OT- IP Objective Assessments Start: 01/22/19 10:30 Freq: Status: Active Protocol: Document 01/22/19 10:31 [facility] (Rec: 01/22/19 10:45 [facility] [email or web address]) OT Gross Range of Motion Upper Extremity Range of Motion Assessment Within Functional Limits OT Strength Upper Extremity Strength Assessment Within Functional Limits OT-Muscle Tone Assessment Muscle Tone WNL No M9 OT- IP Assessment and Plan Start: 01/22/19 10:30 Freq: Status: Active Protocol: Document 01/22/19 10:31 [facility] (Rec: 01/22/19 10:45 [facility] [email or web address]) OT Summary Assessment and Plan Potential Rehabilitation Potential Excellent Analytic Complexity at Evaluation Low Summary OT Impairments Balance Dressing Toileting Bathing Progress Towards Goals Progressing Toward Goals Assessment Summary Pt low complexity and doing well and mainly just needing minimal assist for ADl needss, pt has to assist at home . Pt looking to go home soon. Goals Grooming Goal Independent Dressing Goal Independent Long Handled Shoe [place] [employer] Insurance Advisor Sock Aid Toileting Goal Independent Bathing Goal Standby Assistance Toilet Transfer Goal Independent Shower Transfer Goal Standby Assistance Patient/Caregiver Education Goal Caregiver Independent Assisting Patient Days to Meet Goals 1 Frequency of Treatment Frequency Of Treatment Once a Day Treatment Plan OT Treatment Plan ADL Training Functional Mobility Patient/Family Education Discharge Planning Other Treatment Recommendations and Next shower, caregiver training. Treatment Focus Discharge Recommendations OT Discharge Recommendations Home with Assistance Home Equipment Needs LB AED, shower chair, HHSP
[2019-01-22 11:00] VITALS: BP 122/62; PULSE 62; RESP 16; TEMP 36.7; O2SAT 96
[2019-01-22 15:00] VITALS: BP 111/66; PULSE 77; RESP 16; TEMP 36.8; O2SAT 96
--- NOTE | 2019-01-22 16:37 | PT.IPTN ---
Current Diagnoses Spinal stenosis, lumbar region with neurogenic claudication (01/21/19) Surgery Performed Operation Date: 01/21/19 07:45 Actual Procedures p L4-5,L5-S1 Laminectomy; L5-S1 Instru. fusion w/bone graft - Adam Witt MD Physical Therapy Treatment Note M2 PT-IP Current Condition Start: 01/21/19 17:07 Freq: NEEDED Status: Active Protocol: Document 01/21/19 15:47 AB (Rec: 01/21/19 17:24 AB [id number]) Physical Therapy Current Condition Current Condition Evaluation Date 01/21/19 Treatment Diagnosis s/p L5S1 TLIF; L4-S1 lami; difficulty in walking Onset Date 01/21/19 Precautions Lumbar Precautions Log Roll No Twisting Limit Bending Lifting Restriction of 10 lbs Gait Belt above Incisional Area M3 PT-IP Subjective Start: 01/21/19 17:07 Freq: NEEDED Status: Active Protocol: Document 01/22/19 16:04 LJ (Rec: 01/22/19 16:37 LJ [email or web address]) Subjective Physical Therapy Visit Type Type Treatment Note Visit Start Time 15:54 Visit Stop Time 16:20 Total Visit Minutes 26 Notes Pt in chair wanting to get up and walk in hallway M4 PT-IP Mobility and Gait Start: 01/21/19 17:07 Freq: NEEDED Status: Active Protocol: Document 01/22/19 16:04 LJ (Rec: 01/22/19 16:37 LJ [email or web address]) PT-Transfer Assessment Sit to and From Stand Sit to and from Stand Standby Assistance Use of Upper Extremities Equipment Transfer Assistive Device Gait Belt Front Wheeled Walker Transfers Transfer Destination Chair Transfer Ability Level of Assist Standby Assistance Use of Upper Extremities Comments Mobility Comments Pt SBA for chair mobility and transfers Gait Assessment Gait Gait Assistance Required: Standby Assistance Distance (Feet) 650 Able to Maintain Weight Bearing Status Yes During Gait Assistive Devices Assistive Device Gait Belt Front Wheeled Walker Gait Deviations General Gait Pattern Decreased Stride Length Decreased Feet Clearance Factors Limiting Gait Function Factors Limiting Gait Function Decreased Activity Tolerance Decreased Sensation Decreased Strength Limited Range of Motion Pain Poor Balance Comments Gait Comments Pt walking with proper FWW usage and posture. Gait is with steady pace and step clearance. No LOB or reported pain M5 PT-IP Objective Assessments Start: 01/21/19 17:07 Freq: NEEDED Status: Active Protocol: Document 01/21/19 15:47 AB (Rec: 01/21/19 17:24 AB [id number]) Orientation Orientation/Cognition Level of Alertness Alert Orientation Name Place Situation Language Function Ability No Deficits Noted Safety Awareness Understands Safety Issues Memory Description No Deficits Noted Gross Range of Motion Lower Extremity ROM Assessment Within Functional Limits Strength Lower Extremity Strength Assessment Within Functional Limits Coordination Assessment Gross Coordination Gross Coordination WNL Sensation Assessment Sensation Gross Sensation Left LE Impaired Light Touch Impaired Sensation Description Numbness Comments Sensation Comments stated that sensation on LLE is less compared to RLE Muscle Tone Muscle Tone WNL Yes M6 PT-IP Treatment Start: 01/21/19 17:07 Freq: NEEDED Status: Active Protocol: Document 01/22/19 09:10 HH (Rec: 01/22/19 10:01 HH [id number]) Physical Therapy Treatment Exercises Exercises Ankle Pumps Heel Slides Education Education Provided Precautions Weight Bearing Status Post-Op Packet Safety M7 PT-IP Assessment and Plan Start: 01/21/19 17:07 Freq: NEEDED Status: Active Protocol: Document 01/22/19 16:04 LJ (Rec: 01/22/19 16:37 LJ [email or web address]) PT Summary Assessment and Plan Summary Impairments Pain ROM Strength Balance Coordination Sensation Tone Cognition Bed Mobility Transfers Gait Activity Tolerance Assessment Summary Pt able to ambulate w/o complaint of pain and no LOB. Gait is steeady with even steps and good foot clearance. He is aware of how to be safe with a FWW and spoke of limiting his longer distance walking for a while so he does not exaserbate his pain Goals Bed Mobility Goal Standby Assistance Transfer Goal Standby Assistance Front Wheeled Walker Gait Goal Standby Assistance Front Wheel Walker Gait Distance 200 Other Goals up/down 2 steps without rails using FWW/ SPC SBA Days to Meet Goals 5 Frequency of Treatment Frequency Of Treatment Twice a Day Treatment Plan Physical Therapy Treatment Plan Bed Mobility Training Transfer Training Gait Training Therapeutic Exercise Balance Retraining Post Op Education Discharge Planning Hot or Cold Pack Neuromuscular Re-ed Coordination Retraining Manual Therapy Other Recommendations and Next Treatment ambulation, caregiver training Focus , stair climbing Recommendations To Nursing Amount of Assist Needed 1 Person Assist Discharge Recommendations PT Discharge Recommendations Home with Assistance
[2019-01-22 19:00] VITALS: BP 133/59; PULSE 86; RESP 16; TEMP 36.8; O2SAT 98
[2019-01-22] MEDS: GABAPENTIN 300 MG CAPSULE PO (21:00)
[2019-01-22] MEDS: SENNOSIDES 8.6 MG TABLET 17.2 MG PO (21:00)
[2019-01-22] MEDS: MAG HYDROX/ALUM/SIMETH 30 ML UDC PO (21:01)
[2019-01-23 00:30] VITALS: BP 112/53; PULSE 85; RESP 16; TEMP 36.7; O2SAT 96
--- NOTE | 2019-01-23 05:51 | PC.NURSE ---
NOC Shift: Pt POD #1 TLIF L5-S1. Dsg CDI. Pt AAOX3, pleasant denies pain, discomfort. OOB w/1 PA FWW, ambulates w/o difficulty. Taking po needs to have BM. Plan to discharge to home this AM if stable per MD.
[2019-01-23 06:24] VITALS: BP 127/68; PULSE 81; RESP 18; TEMP 36.9; O2SAT 95
[2019-01-23 07:35] VITALS: BP 109/58; PULSE 90; RESP 17; TEMP 36.9; O2SAT 94
[2019-01-23] MEDS: HYDROCODONE/ACET 5/325 TABLET 1 TAB PO ×2 (08:44→12:46)
[2019-01-23] MEDS: CELECOXIB 200 MG CAPSULE PO (08:44)
[2019-01-23] MEDS: LISINOPRIL 20 MG TABLET PO (08:44)
[2019-01-23] MEDS: DOCUSATE 100 MG CAPSULE PO (08:44)
[2019-01-23] MEDS: ASPIRIN 325 MG TABLET 162.5 MG PO (08:44)
[2019-01-23] MEDS: SODIUM CHLORIDE 0.9% FLUSH 10 ML IV (08:45)
[2019-01-23] MEDS: MAGNESIUM HYDROXIDE 30 ML UDC PO (08:46)
--- NOTE | 2019-01-23 08:57 | PM.PNPO.1 ---
Subjective Date Patient Seen: 01/23/19 Time Patient Seen: 08:57 Interval history: He is doing well. No leg pain. Back pain tolerable. Exam Vital Signs (past 8 hours): - 01/23/19 06:24 01/23/19 07:35 Temperature 98.5 F 98.4 F Pulse Rate 81 90 Respiratory Rate 18 17 Blood Pressure 127/68 109/58 L Pulse Oximetry 95 94 Fraction of Inspired Oxygen 21 Oxygen Delivery Method Room Air Oxygen Flow Rate 0 Const Orientation: alert and oriented x3 Back/Spine/Pelvis Other: CDI. 5/5 motor both lower extremities. Objective Labs Result Diagrams: 01/22/19 05:12 Assessment & Plan Post-op Postoperative Procedures Operation Date: 01/21/19 07:45 Actual Procedures Side Surgeon p L4-5,L5-S1 Laminectomy; L5-S1 Instru. fusion w/bone graft Adam Witt MD He is doing well. Mobilize. Perez removed this morning. Discharge today. Quality VTE Deep Vein Thrombosis/Pulmonary Embolism Present on Admission: No
--- NOTE | 2019-01-23 08:58 | PM.DS.1 ---
History of Present Illness Date Patient Seen: 01/23/19 Time Patient Seen: 08:58 Chief complaint: [id number] Narrative: 68-year-old male with lumbar stenosis. He had failed conservative management. He had severe pain running down his left leg. Discharge Providers Date of admission: 01/21/19 06:09 Discharge Date: 01/23/19 Primary care physician: Oumar Herbert DO Consults: 01/21/19 12:43 Consult to Occupational Therapy Evaluate & Treat Comment: Physician Instructions: Evaluate and treat Consult to Physical Therapy Evaluate & Treat Comment: Physician Instructions: Evaluate and Treat Discharge provider: Adam Witt MD Summary Discharge Diagnosis: Lumbar stenosis with radiculopathy Hospital Course: He is brought to the operating room on 12/21/2018 where he had a L4-5 and L5-S1 laminectomy and instrumented fusion at L5-S1. Postoperatively he did very well. All of his leg pain resolved. He was up and moving with physical therapy. By postoperative day 2 he was independent with mobility. Status at Discharge Cognitive/behavioral status at discharge: oriented Functional status at discharge: uses cane/walker Overall status at discharge: patient is progressing back to baseline Exam Vital Signs (past 8 hours): - 01/23/19 06:24 01/23/19 07:35 Temperature 98.5 F 98.4 F Pulse Rate 81 90 Respiratory Rate 18 17 Blood Pressure 127/68 109/58 L Pulse Oximetry 95 94 Fraction of Inspired Oxygen 21 Oxygen Delivery Method Room Air Oxygen Flow Rate 0 Const Orientation: alert and oriented x3 Back/Spine/Pelvis Other: CDI. 5/5 motor both lower extremities. Objective Labs Result Diagrams: 01/22/19 05:12 Discharge Plan Discharge Plan Patient Disposition: Home Discharge comment: f/u 1.5 wks Discharge Med Rec/Prescriptions Prescriptions: New celecoxib [Celebrex] 200 mg Capsule 200 mg PO BID PRN (Reason: pain) Qty: 60 RF: 0 docusate sodium [DOK] 100 mg Capsule 100 mg PO BID PRN (Reason: constipation) Qty: 30 RF: 0 hydrocodone-acetaminophen 5-325 mg Tablet See Rx Instructions .ROUTE .COMPLEX PRN (Reason: Pain, Moderate (4-6)) Qty: 30 RF: 0 hydroxyzine pamoate 25 mg Capsule 25 mg PO Q4HR PRN (Reason: spasms) Qty: 20 RF: 0 Continued aspirin 325 mg Tablet 0.5 tab PO DAILY RF: 0 lisinopril 20 mg Tablet 20 mg PO DAILY RF: 0 Discontinued naproxen sodium [Aleve] 220 mg Capsule 220 mg PO QD-BID PRN (Reason: Pain) RF: 0 Follow up/Referrals: Oumar Herbert DO [Primary Care Provider] - Provider Discharge Instructions Diet: Diet as Tolerated Activity: limited BLT 10 lbs max Skin/Wound/Dressing Care Report to your healthcare provider any signs of infection, such as:: chills, fever, night sweats, increased pain, unusual drainage and unusual redness Dressing: may change dressing and shower POD#5 (Tues) Visit Report/Discharge Packet Instructions: DI for Transforaminal Lumbar Interbody Fusion Stand Alone Forms: Surgery Discharge Visit Report Forms: Stroke Signs & Symptoms Discharge Data Primary Care Provider: Oumar Herbert Attending Provider: Adam Witt Admit Date/Time: 01/21/19 06:09 Quality VTE Deep Vein Thrombosis/Pulmonary Embolism Present on Admission: No
--- NOTE | 2019-01-23 09:30 | PT.IPTN ---
Current Diagnoses Spinal stenosis, lumbar region with neurogenic claudication (01/21/19) Surgery Performed Operation Date: 01/21/19 07:45 Actual Procedures p L4-5,L5-S1 Laminectomy; L5-S1 Instru. fusion w/bone graft - Adam Witt MD Physical Therapy Treatment Note M2 PT-IP Current Condition Start: 01/21/19 17:07 Freq: NEEDED Status: Active Protocol: Document 01/21/19 15:47 AB (Rec: 01/21/19 17:24 AB [id number]) Physical Therapy Current Condition Current Condition Evaluation Date 01/21/19 Treatment Diagnosis s/p L5S1 TLIF; L4-S1 lami; difficulty in walking Onset Date 01/21/19 Precautions Lumbar Precautions Log Roll No Twisting Limit Bending Lifting Restriction of 10 lbs Gait Belt above Incisional Area M3 PT-IP Subjective Start: 01/21/19 17:07 Freq: NEEDED Status: Active Protocol: Document 01/23/19 09:30 GGD (Rec: 01/23/19 12:43 GGD [email or web address]) Subjective Physical Therapy Visit Type Type Treatment Note Visit Start Time 09:05 Visit Stop Time 09:30 Total Visit Minutes 25 Physical Therapy Visit Comments Patient Comments PT willing to work with therapy. M4 PT-IP Mobility and Gait Start: 01/21/19 17:07 Freq: NEEDED Status: Active Protocol: Document 01/23/19 09:30 GGD (Rec: 01/23/19 12:43 GGD [email or web address]) PT-Bed Mobility Assessment Rolling Type of Rolling Log Rolling Roll to Left Level of Assist Standby Assistance Supine to Sit Supine to Sit Standby Assistance Sit to Supine Sit to Supine Standby Assistance Scooting Scooting to Edge of Bed Independent PT-Transfer Assessment Sit to and From Stand Sit to and from Stand Standby Assistance Use of Upper Extremities Equipment Transfer Assistive Device Gait Belt Front Wheeled Walker Transfers Transfer Destination Bed Chair Transfer Ability Level of Assist Standby Assistance Use of Upper Extremities Gait Assessment Gait Gait Assistance Required: Standby Assistance Distance (Feet) 500 Able to Maintain Weight Bearing Status Yes During Gait Assistive Devices Assistive Device Gait Belt Front Wheeled Walker Gait Deviations General Gait Pattern Decreased Stride Length Decreased Feet Clearance Factors Limiting Gait Function Factors Limiting Gait Function Decreased Activity Tolerance Decreased Sensation Decreased Strength Limited Range of Motion Pain Poor Balance Comments Gait Comments ambulated 250 with FWw and then without AD with SBA. M5 PT-IP Objective Assessments Start: 01/21/19 17:07 Freq: NEEDED Status: Active Protocol: Document 01/21/19 15:47 AB (Rec: 01/21/19 17:24 AB [id number]) Orientation Orientation/Cognition Level of Alertness Alert Orientation Name Place Situation Language Function Ability No Deficits Noted Safety Awareness Understands Safety Issues Memory Description No Deficits Noted Gross Range of Motion Lower Extremity ROM Assessment Within Functional Limits Strength Lower Extremity Strength Assessment Within Functional Limits Coordination Assessment Gross Coordination Gross Coordination WNL Sensation Assessment Sensation Gross Sensation Left LE Impaired Light Touch Impaired Sensation Description Numbness Comments Sensation Comments stated that sensation on LLE is less compared to RLE Muscle Tone Muscle Tone WNL Yes M6 PT-IP Treatment Start: 01/21/19 17:07 Freq: NEEDED Status: Active Protocol: Document 01/23/19 09:30 GGD (Rec: 01/23/19 12:43 GGD [email or web address]) Physical Therapy Treatment Education Education Provided Precautions M7 PT-IP Assessment and Plan Start: 01/21/19 17:07 Freq: NEEDED Status: Active Protocol: Document 01/23/19 09:30 GGD (Rec: 01/23/19 12:43 GGD [email or web address]) PT Summary Assessment and Plan Summary Assessment Summary Pt safe and stable with mobility. He is safe with gait with and without AD. Pt safe for home D/C when medically stable. Frequency of Treatment Frequency Of Treatment Twice a Day Treatment Plan Physical Therapy Treatment Plan Bed Mobility Training Transfer Training Gait Training Therapeutic Exercise Balance Retraining Post Op Education Discharge Planning Hot or Cold Pack Neuromuscular Re-ed Coordination Retraining Manual Therapy Recommendations To Nursing Amount of Assist Needed 1 Person Assist Discharge Recommendations PT Discharge Recommendations Home with Assistance
[2019-01-23 11:42] VITALS: BP 139/73; PULSE 83; RESP 16; TEMP 36.7; O2SAT 96
--- NOTE | 2019-01-23 12:19 | PC.NURSE ---
Addendum entered by Cary Boland R.N. 01/23/19 13:33: DC - reviewed the dc instructions, medications with pt and spouse, given scripts, paperwork, addl coversite, sl dc'd, belongings gathered, including cell phone, glasses, cane, clothing and slippers, tsf to and taken to spouse's car by home care chaplain. Addendum entered by Cary Boland R.N. 01/23/19 12:43: /PAIN - up to br and voided 500ml clear urine, at lunch given 5/325mg norco x 1 tab for back discomfort 3-4 for transport home. Original Note: AM NOTE - pt is alert, up x 1 person w/fww to chair for breakfast, discussed constipation and added mom this am, does not feel uncomfortable, passing flatus, pain this am 6 on scale 0/10 and given norco 5/325mg x 1 tab with food, after meal christie balloon deflated and dc'd w/o difficulty, enc fluids and pt later voided 500ml. Up with phys therapy and cleared for dc home, surg dsg removed, some pink outline from surg dsg, parallel sutures incisions w/o redness or drainage, replaced with coversite.
== END 2019-01-23 13:15 | disposition home or self-care (01) | DRG 455 ==
PROVIDERS: Admitting Provider Anesthesiology; PCP Family Medicine; Visit Provider Orthopaedic Surgery
PROC: 0SG30AJ Fusion of Lumbosacral Joint with Interbody Fusion Device, Posterior Approach, Anterior Column, Open Approach (ICD-10-PCS; principal; 2019-01-21 07:45)
DX: M48.062 Spinal stenosis, lumbar region with neurogenic claudication (principal); I10 Essential (primary) hypertension; Z87.891 Personal history of nicotine dependence
CPT/HCPCS: 36415; 72100; 76000; 85014; 85018; 94762; 97116; 97162; 97165; 97530; 97535; C1776; J0595; J2250; J2274; J2405; J2704; J3010; J3410